=== PATIENT | female | born 2000 | race Hispanic/Latino ===

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

== ENCOUNTER 2022-12-09 17:55 | Emergency (ER) | payer OTHER ==
[2022-12-09] MEDS ORDERED: Dicyclomine 20 MG TAB ONE (18:32)
[2022-12-09] MEDS ORDERED: Acetaminophen 325 MG TAB ONE (18:32)
[2022-12-09] MEDS ORDERED: Ketorolac Tromethamine 30 MG/ML VIAL ONE (18:32)
[2022-12-09 18:40] LABS: #Eosinphils 0.1 thou/uL (0.0-0.7); #Monocytes 0.7 thou/uL (0.11-0.59); #Neutrophils 7.5 thou/uL (1.40-6.50); %Basophils 0.2 % (0.0-1.0); %Eosinophils 0.5 % (0.0-10.0); %Lymphocytes 24.9 % (21.0-51.0); %Monocytes 6.5 % (0.0-10.0); %Neutrophils 67.6 % (42.0-75.0); Hemoglobin 13.9 g/dL (12.0-16.0); Mean Corpuscular HGB CONC 34.7 g/dL (32.0-36.0); Mean Corpuscular Hemoglobin 28.9 pg (27.0-31.0); Mean Corpuscular Volume 83.4 fl (78.0-98.0); Mean Platelet Volume 11.1 fL (7.4-10.4); Platelet Count 269 10x3/uL (130-400); RBC Distribution Width 11.8 % (11.5-14.5); Red Blood Cell (RBC) Count 4.81 mill/uL (4.20-5.40); White Blood Cell (WBC) Count 11.1 10x3/uL (4.8-10.8)
[2022-12-09 18:48] LABS: Bacteria/HPF 2+ HPF (None Seen); Bilirubin Negative (Negative); Blood, Urine Negative (Negative); CAUTI Indications for Culture Pelvic or flank pain; Clarity Clear (Clear); Glucose, Urine (Dipstick) Greater than 1000 mg/dL (Negative); Ketone, Urine Negative (Negative); Leukocyte 75 Leu/uL (Negative); Nitrite Negative (Negative); Pregnancy Test - Urine (BHCG) Negative (Negative); Pregu Control Background? CLEAR/WHITE (CLR/WHITE); Pregu Control Bar Appear? YES (CONTROL BAR); Protein, Urine (Dipstick) Negative (Neg-Trace); RBC/HPF 0-3 HPF (0-3); Squamous Epithelial 0-3 HPF (0-3); Urobilinogen Normal mg/dL (Less than 2); WBC/HPF Greater than 50 HPF (0-3); Yeast-Budding Rare HPF (None Seen); pH, Urine 7.5 (5.0-9.0)
[2022-12-09 18:50] LABS: Urine Culture Reflex Yes Yes
[2022-12-09 18:51] LABS: PTT 27.8 sec (22.9-36.1); Prothrombin Time 13.5 sec (12.0-14.7)
[2022-12-09 19:03] LABS: ALT (SGPT) 30 U/L (8-55); AST (SGOT) 24 U/L (5-34); Albumin 4.4 g/dL (3.5-5.0); Alkaline Phosphatase 104 U/L (40-110); Anion Gap 16 mmol/L (10-20); BUN (Urea Nitrogen) 7 mg/dL (7.0-18.7); Bilirubin, Total 0.4 mg/dL (0.2-1.2); Calc. Creatinine Clearance 0 mL/min (70-130); Calcium 9.6 mg/dL (7.8-10.44); Carbon Dioxide 29 mmol/L (22-29); Chloride 95 mmol/L (98-107); Estimated GFR 109; Globulin 4.3 g/dL (2.4-3.5); Glucose 318 mg/dL (70-105); Lipase 12 U/L (8-78); Potassium 3.6 mmol/L (3.5-5.1); Protein, Total 8.7 g/dL (6.0-8.3); Sodium 136 mmol/L (136-145)
[2022-12-09] MEDS ORDERED: cefTRIAXone (ROCEPHIN) 2 GM VIAL ONE (19:13)
[2022-12-09 20:07] LABS: SARS-CoV-2 NAA Rapid Test Not Detected (NotDetected)
[2022-12-09 23:37] LABS: Chlamydia by PCR, Vaginal Swab Not Detected (NotDetected); GC by PCR, Vaginal Swab Not Detected (NotDetected)
== END 2022-12-09 21:35 | disposition home or self-care (01) ==
LOC: ERS 17:55
DX: N39.0 Urinary tract infection, site not specified (principal); N76.0 Acute vaginitis; B97.89 Other viral agents as the cause of diseases classified elsewhere; E11.9 Type 2 diabetes mellitus without complications; Z20.822 Contact with and (suspected) exposure to COVID-19
CPT/HCPCS: 71045; 80053; 81001; 81025; 83605; 83690; 84484; 85025; 85610; 85730; 87040; 87077; 87086; 87186; 87480; 87491; 87510; 87591; 87660; 93005; 96361; 96365; 96375; J0696; J1885